=== PATIENT | male | born 1950 | race Caucasian/White ===

== ENCOUNTER → 2017-08-25 | Day surgery (SDC) | payer OTHER ==
--- NOTE | 2017-08-25 10:35 | GOP ---
[f rep st] OPERATIVE REPORT DATE OF OPERATION: 08/25/2017 SURGEON: Henry Vance MD PREOPERATIVE DIAGNOSIS: Elevated prostate specific antigen. POSTOPERATIVE DIAGNOSIS: Elevated prostate specific antigen. PROCEDURE PERFORMED: Transrectal ultrasound-guided biopsies of the prostate. FINDINGS: INDICATIONS: The patient is a 66-year-old male with elevated PSA who, after discussing options, elec denice to come in for prostate biopsies. DESCRIPTION OF PROCEDURE: After informed consent and with the patient in the left lateral decubitus position, transrectal ultrasonography was carried out. The prostate measured approximately 31 cc. T hen, 1% lidocaine was used to infiltrate the periprosthetic tissue. A total of 12 core biopsies were obtained from the right and left base, mid and apical regions. Patient tolerated the procedure well . There were no complications. /[id number]/MODL
== END | disposition home or self-care (01) ==
LOC: BMCIMAGING 08:07
PROVIDERS: ATTEND Urology
PROC: 0VB03ZX Excision of Prostate, Percutaneous Approach, Diagnostic (ICD-10-PCS; principal; 2017-08-25)
DX: R97.20 Elevated prostate specific antigen [PSA] (principal)

== ENCOUNTER → 2017-09-29 | Outpatient (CLI) | payer OTHER ==
[~2017-09-29] MED LIST: IOPAMIDOL (ISOVUE-300) 100 ML BTL ONE
== END ==
LOC: FIMAGING 12:20
PROVIDERS: ATTEND Urology
DX: C61 Malignant neoplasm of prostate (principal); N20.0 Calculus of kidney; N28.1 Cyst of kidney, acquired; K57.30 Diverticulosis of large intestine without perforation or abscess without bleeding
CPT/HCPCS: 74177; Q9967